=== PATIENT | female | born 1990 | race Caucasian/White ===

== ENCOUNTER 2020-04-18 16:06 | Inpatient (IN) | payer MEDICAID ==
[2020-04-18] MEDS ORDERED: Methylergonovine 0.2 MG/1 ML Amp IM PRN (16:41)
[2020-04-18] MEDS ORDERED: Misoprostol 200 MCG Tab PO PRN (16:41)
[2020-04-18] MEDS ORDERED: Water For Irrigation,Sterile 1,000 ML Container IRR PRN (16:41)
[2020-04-18] MEDS ORDERED: Sodium Chloride 0.9% 2.5 ML Syringe FLUSH PRN (16:41)
[2020-04-18] MEDS ORDERED: Tranexamic Acid 1,000 MG in Sodium Chloride 0.9% 100 ML IV PRN (16:41)
[2020-04-18] MEDS ORDERED: Carboprost Tromethamine 250 MCG/1 ML Amp IM PRN (16:41)
[2020-04-18] MEDS ORDERED: Sodium Chloride 0.9% 10 ML SDV IV PRN (16:41)
[2020-04-18] MEDS ORDERED: Nalbuphine 10 MG/1 ML Vial IVPUSH PRN (16:41)
[2020-04-18] MEDS ORDERED: Sodium Chloride 0.9% 10 ML Syringe FLUSH PRN (16:41)
[2020-04-18] MEDS ORDERED: Butorphanol 1 MG/ML SDV IVPUSH PRN (16:41)
[2020-04-18] MEDS ORDERED: Lidocaine 1% 50 ML MDV INJECT PRN (16:41)
[2020-04-18] MEDS ORDERED: Oxytocin/0.9 % Sodium Chloride 30 UNIT/500 ML BAG IV SCH (16:45)
--- NOTE | 2020-04-18 16:56 | PCM.LDHP ---
L&D History of Present Illness - General Date of Service: 04/18/20 Admit Problem/Dx: Patient Status Order with Admit Dx/Problem 04/18/20 16:41 Patient Status [ADT] Routine Admission Diagnosis/Problem Admission Diagnosis/Problem 04/18/20 16:56 presenting to L&D at 38 5/7 weeks (HELEN: 04/27/20) in active labor; doretha q3-4min; SVE per nurse 5cm/90%/0, soft, midposition; GBS negative, Rubella immune, O+; vertex presentation by Ry'scott, confirmed by bedside ultrasound Source of Information: Patient History Limitations: Reports: No Limitations - Related Data Allergies/Adverse Reactions: Allergies Allergy/AdvReac Type Severity Reaction Status Date / Time No Known Allergies Allergy Verified 04/18/20 16:38 Past Medical History HEENT History: Reports: None Cardiovascular History: Reports: None Respiratory History: Reports: None Gastrointestinal History: Reports: GERD Genitourinary History: Reports: None 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: Musculoskeletal History: Reports: None, Fracture Other Musculoskeletal History: Fracture right hip Neurological History: Reports: None Psychiatric History: Reports: None Endocrine/Metabolic History: Reports: None Hematologic History: Reports: None Immunologic History: Reports: None Oncologic (Cancer) History: Reports: None Dermatologic History: Reports: None - Infectious Disease History Infectious Disease History: Reports: None Social & Family History - Family History Cardiac: Reports: [place] Psychiatric: Reports: Autism Endocrine/Metabolic: Reports: Diabetes, type II H&P Review of Systems - Review of Systems: Review Of Systems: See Below General: Reports: No Symptoms HEENT: Reports: No Symptoms Pulmonary: Reports: No Symptoms Cardiovascular: Reports: No Symptoms Gastrointestinal: Reports: No Symptoms Genitourinary: Reports: No Symptoms Musculoskeletal: Reports: No Symptoms Skin: Reports: No Symptoms Psychiatric: Reports: No Symptoms Neurological: Reports: No Symptoms Hematologic/Lymphatic: Reports: No Symptoms Immunologic: Reports: No Symptoms L&D Exam - Exam Exam: See Below - Vital Signs Weight: 145 lb - OB Specific Contraction Intensity: Mild to Moderate Movement: Active Heart Tones: Present Heart Rate (FHR) Variability: Moderate (6-25 bmp) Presentation: Vertex - Lock Score Lock Score Cervix Position: Midposition Lock Score Consistency: Soft Lock Score Effacement: >80% Lock Score Dilation: > 5 cm Lock Score Infant's Station: -1 ,0 Lock Score Total: 11 - Exam General: Alert, Oriented, Cooperative Lungs: Normal Respiratory Effort Cardiovascular: Regular Rate, Regular Rhythm GI/Abdominal Exam: Soft, Non-Tender Rectal Exam: Deferred Genitourinary: Deferred Back Exam: Normal Inspection, Full Range of Motion Extremities: Normal Inspection, Normal Range of Motion, Non-Tender, Normal Capillary Refill Skin: Warm, Dry, Intact Neurological: Normal Gait, Normal Speech, Normal Tone, Sensation Intact Psychiatric: Alert, Normal Affect, Normal Mood - Problem List (1) Supervision of normal IUP (intrauterine ) in multigravida SNOMED Code(s): 481551299, 937413597, 439898636 ICD Code: Z34.90 - ENCNTR FOR SUPRVSN OF NORMAL , UNSP, UNSP TRIMESTER Status: Acute Priority: High Current Visit: No Qualifiers: Trimester: third trimester Problem List Initiated/Reviewed/Updated: Yes Orders Last 24hrs: Active Orders 24 hr Category Date Time Status Patient Status [ADT] Routine ADT 04/18/20 16:41 Active Heart Tones [RC] CONTINUOUS Care 04/18/20 16:41 Active Non Stress Test [RC] PER UNIT ROUTINE Care 04/18/20 16:41 Active May Shower [RC] ASDIRECTED Care 04/18/20 16:41 Active Notify Provider [RC] PRN Care 04/18/20 16:41 Active Up ad Ria [RC] ASDIRECTED Care 04/18/20 16:41 Active Vaginal Exam [RC] PRN Care 04/18/20 16:41 Active Vital Signs [RC] PER UNIT ROUTINE Care 04/18/20 16:41 Active CBC W/O DIFF,HEMOGRAM [HEME] Routine Lab 04/18/20 16:41 Ordered CORONAVIRUS COVID-19 PCR PHL Stat Lab 04/18/20 16:43 Ordered RPR (SYPHILIS SERO) W/ RFLX [REF] Routine Lab 04/18/20 16:41 Ordered TYPE AND SCREEN [BBK] Routine Lab 04/18/20 16:41 Ordered Butorphanol [Stadol] Med 04/18/20 16:41 Ordered 1 mg IVPUSH Q1H PRN Carboprost Tromethamine [Hemabate DS] Med 04/18/20 16:41 Ordered 250 mcg IM ASDIRECTED PRN Lactated Ringers [Ringers, Lactated] 1,000 ml Med 04/18/20 16:45 Ordered IV ASDIRECTED Lidocaine 1% [Xylocaine 1%] Med 04/18/20 16:41 Ordered 50 ml INJECT ONETIME PRN Methylergonovine [Methergine] Med 04/18/20 16:41 Ordered 0.2 mg IM ASDIRECTED PRN Nalbuphine [Nubain] Med 04/18/20 16:41 Ordered 10 mg IVPUSH Q1H PRN Oxytocin/0.9 % Sodium Chloride [Oxytocin 30 Unit/500 ML Med 04/18/20 16:45 Ordered -NS] 30 unit in 500 ml IV TITRATE Sodium Chloride 0.9% [Normal Saline] Med 04/18/20 16:41 Ordered 10 ml IV ASDIRECTED PRN Sodium Chloride 0.9% [Saline Flush] Med 04/18/20 16:41 Ordered 10 ml FLUSH ASDIRECTED PRN Sodium Chloride 0.9% [Saline Flush] Med 04/18/20 16:41 Ordered 2.5 ml FLUSH ASDIRECTED PRN Tranexamic Acid [Cyklokapron] 1,000 mg Med 04/18/20 16:41 Ordered Sodium Chloride 0.9% [Normal Saline] 100 ml IV ONETIME Water For Irrigation,Sterile [Sterile Water for Med 04/18/20 16:41 Ordered Irrigation] 1,000 ml IRR ASDIRECTED PRN miSOPROStoL [Cytotec] Med 04/18/20 16:41 Ordered 200 mcg PO ONETIME PRN Scalp Electrode [WOMSER] Per Unit Routine Oth 04/18/20 16:41 Ordered Peripheral IV Insertion Adult [OM.PC] Routine Oth 04/18/20 16:41 Ordered Resuscitation Status Routine Resus Stat 04/18/20 16:41 Ordered Medication Orders Butorphanol Tartrate (Stadol) 1 mg IVPUSH Q1H PRN PRN Reason: Pain Carboprost Tromethamine (Hemabate Ds) 250 mcg IM ASDIRECTED PRN PRN Reason: Post Hemorrhage Oxytocin/Sodium Chloride (Oxytocin 30 Unit/500 Ml-Ns) 30 unit in 500 mls @ 500 mls/hr IV TITRATE [facility] Tranexamic Acid 1,000 mg/ (Sodium Chloride) 110 mls @ 660 mls/hr IV ONETIME PRN PRN Reason: Bleeding Lactated Ringer's (Ringers, Lactated) 1,000 mls @ 150 mls/hr IV ASDIRECTED [facility] Lidocaine HCl (Xylocaine 1%) 50 ml INJECT ONETIME PRN PRN Reason: Laceration repair Methylergonovine Maleate (Methergine) 0.2 mg IM ASDIRECTED PRN PRN Reason: Post Hemorrhage Misoprostol (Cytotec) 200 mcg PO ONETIME PRN PRN Reason: Post Hemorrhage Nalbuphine HCl (Nubain) 10 mg IVPUSH Q1H PRN PRN Reason: Pain (severe 7-10) Sodium Chloride (Saline Flush) 10 ml FLUSH ASDIRECTED PRN PRN Reason: Keep Vein Open Sodium Chloride (Saline Flush) 2.5 ml FLUSH ASDIRECTED PRN PRN Reason: Keep Vein Open Sodium Chloride (Normal Saline) 10 ml IV ASDIRECTED PRN PRN Reason: IV Use Sterile Water (Sterile Water For Irrigation) 1,000 ml IRR ASDIRECTED PRN PRN Reason: delivery Assessment/Plan Comment:: Admit A: presenting to L&D at 38 5/7 weeks (HELEN: 04/27/20) in active labor; doretha q3-4min; SVE per nurse 5cm/90%/0, soft, midposition; GBS negative, Rubella immune, O+; vertex presentation by Ry's, confirmed by bedside ultrasound P: Anticipate ; epidural PRN; Dr. Marquez updated.
[2020-04-18] MEDS: Lactated Ringers 1,000 ML IV SCH ×2 (17:17→18:13)
[2020-04-18] MEDS ORDERED: Bupivicaine/fentaNYL/NS 250 ML ONE (18:35)
[2020-04-18] MEDS ORDERED: fentaNYL 100 MCG/2 ML SDV ONE (18:36)
[2020-04-18] MEDS ORDERED: Bupivacaine 0.5% 10 ML SDV ONE (18:37)
--- NOTE | 2020-04-18 20:13 | PCM.DEL ---
L & D Note - General Info Date of Service: 04/18/20 Mother's Due Date: 04/27/20 - Delivery Note Labor: Spontaneous Delivery Outcome: Livebirth Infant Delivery Method: Spontaneous Vaginal Delivery-Single Presentation: Vertex Nuchal Cord: None Anesthesia Type: Epidural Amniotic Fluid Description: Clear Laceration: None Placenta: Intact, Spontaneous Cord: 3 Vessels Estimated Blood Loss: 150 Resuscitation Needed: No Score 1 min: 9 Score 5 min: 9 Second Stage Interventions: Reports: Second Nurse Assessed Progress of Descent, Second Nurse Reviewed Contraction Pattern, Second Nurse Reviewed Heart Tones, Encouragement Given, Pushing Effectively, Pushing, Pulls Own Legs Back Delivery Comments (Free Text/Narrative):: viable male; epidural for pain relief; head delivered with good pushing; shoulders and body followed easily after; no nuchal; baby to mom's abdomen immediately [id number] for assessment; APGARs 9/9/; weight pending; cord doubly clamped, cut by tool design drafter after cessation of pulsing; placenta delivered grossly intact, nj; 3VC; EBL 150 mL; perineum intact; pitocin to IVF; mom and baby left in stable condition with nurse at bedside for assessment - General Info Date of Service: 04/18/20 Admission Dx/Problem (Free Text): Patient Status Order with Admit Dx/Problem 04/18/20 16:41 Patient Status [ADT] Routine Admission Diagnosis/Problem Admission Diagnosis/Problem 04/18/20 16:56 presenting to L&D at 38 5/7 weeks (HELEN: 04/27/20) in active labor; doretha q3-4min; SVE per nurse 5cm/90%/0, soft, midposition; GBS negative, Rubella immune, O+; vertex presentation by Ry's, confirmed by bedside ultrasound Functional Status: Reports: Pain Controlled - Review of Systems General: Reports: No Symptoms HEENT: Reports: No Symptoms Pulmonary: Reports: No Symptoms Cardiovascular: Reports: No Symptoms Gastrointestinal: Reports: No Symptoms Genitourinary: Reports: No Symptoms Musculoskeletal: Reports: No Symptoms Skin: Reports: No Symptoms Neurological: Reports: No Symptoms Psychiatric: Reports: No Symptoms - Patient Data Weight - Most Recent: 145 lb I&O - Last 24 Hours: Intake & Output 04/18/20 04/18/20 04/18/20 06:59 14:59 22:59 Intake Total 1000 Balance 1000 Lab Results Last 24 Hours: Laboratory Results - last 24 hr 04/18/20 04/18/20 04/18/20 Range/Units 17:28 17:28 17:30 WBC 17.00 H (4.0-11.0) K/uL RBC 3.91 L (4.30-5.90) M/uL Hgb 12.5 (12.0-16.0) g/dL Hct 37.1 (36.0-46.0) % MCV 94.9 (80.0-98.0) fL MCH 32.0 (27.0-32.0) pg MCHC 33.7 (31.0-37.0) g/dL RDW Std Deviation 44.6 (28.0-62.0) fl RDW Coeff of Marisa 13 (11.0-15.0) % Plt Count 213 (150-400) K/uL MPV 10.60 (7.40-12.00) fL Nucleated RBC % 0.0 /100WBC Nucleated RBCs # 0 K/uL SARS-CoV-2 RNA (BRIANNA) NEGATIVE (NEGATIVE) Blood Type O POSITIVE Antibody Screen NEGATIVE Med Orders - Current: Current Medications Butorphanol Tartrate (Stadol) 1 mg IVPUSH Q1H PRN PRN Reason: Pain Carboprost Tromethamine (Hemabate Ds) 250 mcg IM ASDIRECTED PRN PRN Reason: Post Hemorrhage Oxytocin/Sodium Chloride (Oxytocin 30 Unit/500 Ml-Ns) 30 unit in 500 mls @ 500 mls/hr IV TITRATE [facility] Tranexamic Acid 1,000 mg/ (Sodium Chloride) 110 mls @ 660 mls/hr IV ONETIME PRN PRN Reason: Bleeding Lactated Ringer's (Ringers, Lactated) 1,000 mls @ 150 mls/hr IV ASDIRECTED [facility] Last Admin: 04/18/20 18:13 Dose: 999 mls/hr Documented by: Lidocaine HCl (Xylocaine 1%) 50 ml INJECT ONETIME PRN PRN Reason: Laceration repair Methylergonovine Maleate (Methergine) 0.2 mg IM ASDIRECTED PRN PRN Reason: Post Hemorrhage Misoprostol (Cytotec) 200 mcg PO ONETIME PRN PRN Reason: Post Hemorrhage Sodium Chloride (Saline Flush) 10 ml FLUSH ASDIRECTED PRN PRN Reason: Keep Vein Open Sodium Chloride (Saline Flush) 2.5 ml FLUSH ASDIRECTED PRN PRN Reason: Keep Vein Open Sodium Chloride (Normal Saline) 10 ml IV ASDIRECTED PRN PRN Reason: IV Use Sterile Water (Sterile Water For Irrigation) 1,000 ml IRR ASDIRECTED PRN PRN Reason: delivery Discontinued Medications Bupivacaine HCl (Sensorcaine-Mpf 0.5%) Confirm Administered Dose 10 ml .ROUTE .STK-MED ONE Stop: 04/18/20 18:38 Fentanyl (Sublimaze) Confirm Administered Dose 100 mcg .ROUTE .STK-MED ONE Stop: 04/18/20 18:37 Fentanyl/Bupivacaine HCl (Fentanyl/Bupivacaine/Ns 2 Mcg-0.125% 250 Ml) Confirm Administered Dose 250 mls @ as directed .ROUTE .STK-MED ONE Stop: 04/18/20 18:36 - Exam General: Alert, Oriented, Cooperative, No Acute Distress Lungs: Normal Respiratory Effort Cardiovascular: Regular Rate, Regular Rhythm GI/Abdominal Exam: Soft, Non-Tender (Female) Exam: Deferred Back Exam: Normal Inspection Extremities: Normal Inspection, Normal Range of Motion, No Pedal Edema, Normal Capillary Refill Skin: Warm, Dry, Intact Neurological: No New Focal Deficit, Normal Speech, Normal Tone Psy/Mental Status: Alert, Normal Affect, Normal Mood - Problem List & Annotations (1) Supervision of normal IUP (intrauterine ) in multigravida SNOMED Code(s): 671717090, [id number], 166041213 Code(s): Z34.90 - ENCNTR FOR SUPRVSN OF NORMAL , UNSP, UNSP TRIMESTER Status: Acute Priority: High Current Visit: No Qualifiers: Trimester: third trimester (2) (spontaneous vaginal delivery) SNOMED Code(s): 899362362 Code(s): O80 - ENCOUNTER FOR FULL-TERM UNCOMPLICATED DELIVERY Status: Acute Priority: High Current Visit: No - Problem List Review Problem List Initiated/Reviewed/Updated: Yes - My Orders Last 24 Hours: My Active Orders 04/18/20 16:41 Patient Status [ADT] Routine Heart Tones [RC] CONTINUOUS Non Stress Test [RC] PER UNIT ROUTINE May Shower [RC] ASDIRECTED Notify Provider [RC] PRN Up ad Ria [RC] ASDIRECTED Vaginal Exam [RC] PRN Vital Signs [RC] PER UNIT ROUTINE Butorphanol [Stadol] 1 mg IVPUSH Q1H PRN Carboprost Tromethamine [Hemabate DS] 250 mcg IM ASDIRECTED PRN Lidocaine 1% [Xylocaine 1%] 50 ml INJECT ONETIME PRN Methylergonovine [Methergine] 0.2 mg IM ASDIRECTED PRN Sodium Chloride 0.9% [Normal Saline] 10 ml IV ASDIRECTED PRN Sodium Chloride 0.9% [Saline Flush] 10 ml FLUSH ASDIRECTED PRN Sodium Chloride 0.9% [Saline Flush] 2.5 ml FLUSH ASDIRECTED PRN Tranexamic Acid [Cyklokapron] 1,000 mg Sodium Chloride 0.9% [Normal Saline] 100 ml IV ONETIME Water For Irrigation,Sterile [Sterile Water for Irrigation] 1,000 ml IRR ASDIRECTED PRN miSOPROStoL [Cytotec] 200 mcg PO ONETIME PRN Scalp Electrode [WOMSER] Per Unit Routine Peripheral IV Insertion Adult [OM.PC] Routine Resuscitation Status Routine 04/18/20 16:45 Lactated Ringers [Ringers, Lactated] 1,000 ml IV ASDIRECTED Oxytocin/0.9 % Sodium Chloride [Oxytocin 30 Unit/500 ML-NS] 30 unit in 500 ml IV TITRATE 04/18/20 17:28 RPR (SYPHILIS SERO) W/ RFLX [REF] Routine - Plan Plan:: Admit A: presenting to L&D at 38 5/7 weeks (HELEN: 04/27/20) in active labor; doretha q3-4min; SVE per nurse 5cm/90%/0, soft, midposition; GBS negative, Rubella immune, O+; vertex presentation by Ry's, confirmed by bedside ultrasound P: Anticipate ; epidural PRN; Dr. Marquez updated. Delivery A: viable male; epidural for pain relief; APGARs 9/9; weight pending; cord doubly clamped, cut by tool design drafter after cessation of pulsing; placenta delivered grossly intact, nj; 3VC; EBL 150 mL; perineum intact; pitocin to IVF; mom and baby left in stable condition with nurse at bedside for assessment P: Routine plan of care; Dr. Marquez updated.
[2020-04-18] MEDS ORDERED: Bisacodyl 10 MG Supp RECTAL PRN (20:16)
[2020-04-18] MEDS ORDERED: Benzocaine/Menthol 20%-0.5% Spray 78 GM Cannister TOP PRN (20:16)
[2020-04-18] MEDS ORDERED: Ibuprofen 400 MG Tab PO PRN (20:16)
[2020-04-18] MEDS ORDERED: oxyCODONE 5 MG Tab PO PRN (20:16)
[2020-04-18] MEDS ORDERED: Acetaminophen 500 MG Tab PO PRN ×2 (20:16)
[2020-04-18] MEDS ORDERED: Docusate Sodium 100 MG Cap PO PRN (20:16)
[2020-04-18] MEDS ORDERED: Witch Hazel Medicated Pads 40/Jar TOP PRN (20:16)
[2020-04-18] MEDS ORDERED: Lanolin 100% Cream 7 GM Tube TOP PRN (20:16)
[2020-04-18] MEDS ORDERED: Ibuprofen 800 MG Tab PO PRN (20:16)
--- NOTE | 2020-04-19 07:21 | PCM48HPAN ---
Post Anesthesia Note - EVALUATION WITHIN 48HRS OF ANESTHETIC Vital Signs in Normal Range: Yes Patient Participated in Evaluation: Yes Respiratory Function Stable: Yes Airway Patent: Yes Cardiovascular Function Stable: Yes Hydration Status Stable: Yes Pain Control Satisfactory: Yes Nausea and Vomiting Control Satisfactory: Yes Mental Status Recovered: Yes Vital Signs: Last Vital Signs Temp 36.5 C 04/19/20 05:30 Pulse 81 04/19/20 05:30 Resp 15 04/19/20 05:30 BP 109/78 04/19/20 05:30 Pulse Ox 96 04/19/20 05:30 - COMMENTS/OBSERVATIONS Free Text/Narrative:: Doing well. No problems post.
--- NOTE | 2020-04-19 07:34 | PCM.PREANE ---
Preanesthetic Assessment - Anesthesia/Transfusion/Family Hx Anesthesia History: Prior Anesthesia Without Reaction Family History of Anesthesia Reaction: No Transfusion History: No Prior Transfusion(s) - Review of Systems General: No Symptoms Pulmonary: No Symptoms Cardiovascular: No Symptoms Gastrointestinal: Abdominal Pain Neurological: No Symptoms Other: Reports: None - Physical Assessment NPO Status Date: 04/18/20 Vital Signs: Last Vital Signs Temp 97.7 F 04/19/20 05:30 Pulse 81 04/19/20 05:30 Resp 15 04/19/20 05:30 BP 109/78 04/19/20 05:30 Pulse Ox 96 04/19/20 05:30 Height: 5 ft 2 in Weight: 65.771 kg ASA Class: 2 Mental Status: Alert & Oriented x3 Airway Class: Mallampati = 2 Dentition: Reports: Normal Dentition ROM/Head Extension: Full Lungs: Clear to Auscultation, Normal Respiratory Effort Cardiovascular: Regular Rate, Regular Rhythm - Lab Values: Laboratory Last Values WBC 17.00 K/uL (4.0-11.0) H 04/18/20 17:28 RBC 3.91 M/uL (4.30-5.90) L 04/18/20 17:28 Hgb 11.7 g/dL (12.0-16.0) L 04/19/20 05:39 Hct 35.7 % (36.0-46.0) L 04/19/20 05:39 MCV 94.9 fL (80.0-98.0) 04/18/20 17:28 MCH 32.0 pg (27.0-32.0) 04/18/20 17:28 MCHC 33.7 g/dL (31.0-37.0) 04/18/20 17:28 RDW Std Deviation 44.6 fl (28.0-62.0) 04/18/20 17:28 RDW Coeff of Marisa 13 % (11.0-15.0) 04/18/20 17:28 Plt Count 213 K/uL (150-400) 04/18/20 17:28 MPV 10.60 fL (7.40-12.00) 04/18/20 17:28 Nucleated RBC % 0.0 /100WBC 04/18/20 17:28 Nucleated RBCs # 0 K/uL 04/18/20 17:28 SARS-CoV-2 RNA (BRIANNA) NEGATIVE (NEGATIVE) 04/18/20 17:30 Blood Type O POSITIVE 04/18/20 17:28 Antibody Screen NEGATIVE 04/18/20 17:28 - Allergies Allergies/Adverse Reactions: Allergies Allergy/AdvReac Type Severity Reaction Status Date / Time No Known Allergies Allergy Verified 04/18/20 16:38 - Acknowledgements Anesthesia Type Planned: Epidural Pt an Appropriate Candidate for the Planned Anesthesia: Yes Alternatives and Risks of Anesthesia Discussed w Pt/Guardian: Yes Pt/Guardian Understands and Agrees with Anesthesia Plan: Yes PreAnesthesia Questionnaire - Past Health History Medical/Surgical History: Denies Medical/Surgical History HEENT History: Reports: None Cardiovascular History: Reports: None Respiratory History: Reports: None Gastrointestinal History: Reports: GERD Genitourinary History: Reports: None 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: Musculoskeletal History: Reports: None, Fracture Other Musculoskeletal History: Fracture right hip Neurological History: Reports: None Psychiatric History: Reports: None Endocrine/Metabolic History: Reports: None Hematologic History: Reports: None Immunologic History: Reports: None Oncologic (Cancer) History: Reports: None Dermatologic History: Reports: None - Infectious Disease History Infectious Disease History: Reports: None - SUBSTANCE USE Tobacco Use Status *Q: Never Tobacco User Second Hand Smoke Exposure: No - CURRENT (IN HOUSE) MEDS Current Meds: Current Medications Acetaminophen (Tylenol Extra Strength) 500 mg PO Q4H PRN PRN Reason: Pain Acetaminophen (Tylenol Extra Strength) 1,000 mg PO Q4H PRN PRN Reason: Pain Benzocaine/Menthol (Dermoplast Pain Relief 20%-0.5% [place]) 78 gm TOP ASDIRECTED PRN PRN Reason: Perineal Comfort Measure Bisacodyl (Dulcolax) 10 mg RECTAL ONETIME PRN PRN Reason: Constipation Docusate Sodium (Colace) 100 mg PO BID PRN PRN Reason: Constipation Emollient Ointment (Lansinoh Hpa) 0 gm TOP ASDIRECTED PRN PRN Reason: Sore Nipples Ibuprofen (Motrin) 400 mg PO Q4H PRN PRN Reason: Pain Ibuprofen (Motrin) 800 mg PO Q6H PRN PRN Reason: Pain Oxycodone HCl (Oxycodone) 5 mg PO Q2H PRN PRN Reason: Pain Witch Yuliana (Tucks) 1 pad TOP ASDIRECTED PRN PRN Reason: comfort care Discontinued Medications Bupivacaine HCl (Sensorcaine-Mpf 0.5%) Confirm Administered Dose 10 ml .ROUTE .uiu-MED ONE Stop: 04/18/20 18:38 Butorphanol Tartrate (Stadol) 1 mg IVPUSH Q1H PRN PRN Reason: Pain Carboprost Tromethamine (Hemabate Ds) 250 mcg IM ASDIRECTED PRN PRN Reason: Post Hemorrhage Fentanyl (Sublimaze) Confirm Administered Dose 100 mcg .ROUTE .uiu-MED ONE Stop: 04/18/20 18:37 Oxytocin/Sodium Chloride (Oxytocin 30 Unit/500 Ml-Ns) 30 unit in 500 mls @ 500 mls/hr IV TITRATE [facility] Tranexamic Acid 1,000 mg/ (Sodium Chloride) 110 mls @ 660 mls/hr IV ONETIME PRN PRN Reason: Bleeding Lactated Ringer's (Ringers, Lactated) 1,000 mls @ 150 mls/hr IV ASDIRECTED [facility] Last Admin: 04/18/20 18:13 Dose: 999 mls/hr Documented by: Fentanyl/Bupivacaine HCl (Fentanyl/Bupivacaine/Ns 2 Mcg-0.125% 250 Ml) Confirm Administered Dose 250 mls @ as directed .ROUTE .WindPipe ONE Stop: 04/18/20 18:36 Lidocaine HCl (Xylocaine 1%) 50 ml INJECT ONETIME PRN PRN Reason: Laceration repair Methylergonovine Maleate (Methergine) 0.2 mg IM ASDIRECTED PRN PRN Reason: Post Hemorrhage Misoprostol (Cytotec) 200 mcg PO ONETIME PRN PRN Reason: Post Hemorrhage Sodium Chloride (Saline Flush) 10 ml FLUSH ASDIRECTED PRN PRN Reason: Keep Vein Open Sodium Chloride (Saline Flush) 2.5 ml FLUSH ASDIRECTED PRN PRN Reason: Keep Vein Open Sodium Chloride (Normal Saline) 10 ml IV ASDIRECTED PRN PRN Reason: IV Use Sterile Water (Sterile Water For Irrigation) 1,000 ml IRR ASDIRECTED PRN PRN Reason: delivery
--- NOTE | 2020-04-19 07:42 | PCM.DCSUM1 ---
Discharge Summary - Hospital Course Free Text/Narrative:: Discharge home with baby. Follow up in the clinic in six weeks for routine visit; sooner, if needed. Diagnosis: Stroke: No Modified [place] Scale: No Symptoms at All Modified Jan[place] Scale Score: 0 - Discharge Data Discharge Date: 04/19/20 Discharge Disposition: Home, Self-Care 01 Condition: Good - Referral to Home Health Primary Care Physician: PCP None - Discharge Diagnosis/Problem(s) (1) Supervision of normal IUP (intrauterine ) in multigravida SNOMED Code(s): 437898056, 211480525, 853240444 ICD Code: Z34.90 - ENCNTR FOR SUPRVSN OF NORMAL , UNSP, UNSP TRIMESTER Status: Acute Priority: High Current Visit: No Qualifiers: Trimester: third trimester (2) (spontaneous vaginal delivery) SNOMED Code(s): 903398105 ICD Code: O80 - ENCOUNTER FOR FULL-TERM UNCOMPLICATED DELIVERY Status: Acute Priority: High Current Visit: No - Patient Instructions Diet: Usual Diet as Tolerated, Regular Diet as Tolerated, Drink 8-10+ Glasses/Day Activity: As Tolerated, No Strenuous Activities, Rest and Relax Today Driving: May Drive Today Showering/Bathing: May Shower Notify Provider of: Fever, Increased Pain, Swelling and Redness, Drainage, Naus ea and/or Vomiting - Discharge Plan *PRESCRIPTION DRUG MONITORING PROGRAM REVIEWED*: Not Applicable *COPY OF PRESCRIPTION DRUG MONITORING REPORT IN PATIENT KASIE: Not Applicable Prescriptions/Med Rec: Ibuprofen [Motrin] 800 mg PO Q6H PRN #90 tablet PRN Reason: Pain Home Medications: Home Meds Ibuprofen [Motrin] 800 mg PO Q6H PRN #90 tablet 04/19/20 [Rx] Oxygen Therapy Mode: Room Air - Discharge Summary/Plan Comment DC Time >30 min.: Yes - General Info Date of Service: 04/19/20 Admission Dx/Problem (Free Text: Patient Status Order with Admit Dx/Problem 04/18/20 16:41 Patient Status [ADT] Routine Admission Diagnosis/Problem Admission Diagnosis/Problem 04/18/20 16:56 presenting to L&D at 38 5/7 weeks (HELEN: 04/27/20) in active labor; doretha q3-4min; SVE per nurse 5cm/90%/0, soft, midposition; GBS negative, Rubella immune, O+; vertex presentation by Yury, confirmed by bedside ultrasound Functional Status: Reports: Pain Controlled, Tolerating Diet, Ambulating, Urinating - Review of Systems General: Reports: No Symptoms HEENT: Reports: No Symptoms Pulmonary: Reports: No Symptoms Cardiovascular: Reports: No Symptoms Gastrointestinal: Reports: No Symptoms Genitourinary: Reports: No Symptoms Musculoskeletal: Reports: No Symptoms Skin: Reports: No Symptoms Neurological: Reports: No Symptoms Psychiatric: Reports: No Symptoms - Patient Data Vitals - Most Recent: Last Vital Signs Temp 97.7 F 04/19/20 05:30 Pulse 81 04/19/20 05:30 Resp 15 04/19/20 05:30 BP 109/78 04/19/20 05:30 Pulse Ox 96 04/19/20 05:30 Weight - Most Recent: 145 lb I&O - Last 24 hours: Intake & Output 04/18/20 04/19/20 04/19/20 22:59 06:59 14:59 Intake Total 1000 Balance 1000 Lab Results - Last 24 hrs: Laboratory Results - last 24 hr 04/18/20 04/18/20 04/18/20 Range/Units 17:28 17:28 17:30 WBC 17.00 H (4.0-11.0) K/uL RBC 3.91 L (4.30-5.90) M/uL Hgb 12.5 (12.0-16.0) g/dL Hct 37.1 (36.0-46.0) % MCV 94.9 (80.0-98.0) fL MCH 32.0 (27.0-32.0) pg MCHC 33.7 (31.0-37.0) g/dL RDW Std Deviation 44.6 (28.0-62.0) fl RDW Coeff of Marisa 13 (11.0-15.0) % Plt Count 213 (150-400) K/uL MPV 10.60 (7.40-12.00) fL Nucleated RBC % 0.0 /100WBC Nucleated RBCs # 0 K/uL SARS-CoV-2 RNA (BRIANNA) NEGATIVE (NEGATIVE) Blood Type O POSITIVE Antibody Screen NEGATIVE 04/19/20 Range/Units 05:39 WBC (4.0-11.0) K/uL RBC (4.30-5.90) M/uL Hgb 11.7 L (12.0-16.0) g/dL Hct 35.7 L (36.0-46.0) % MCV (80.0-98.0) fL MCH (27.0-32.0) pg MCHC (31.0-37.0) g/dL RDW Std Deviation (28.0-62.0) fl RDW Coeff of Marisa (11.0-15.0) % Plt Count (150-400) K/uL MPV (7.40-12.00) fL Nucleated RBC % /100WBC Nucleated RBCs # K/uL SARS-CoV-2 RNA (BRIANNA) (NEGATIVE) Blood Type Antibody Screen Med Orders - Current: Current Medications Acetaminophen (Tylenol Extra Strength) 500 mg PO Q4H PRN PRN Reason: Pain Acetaminophen (Tylenol Extra Strength) 1,000 mg PO Q4H PRN PRN Reason: Pain Benzocaine/Menthol (Dermoplast Pain Relief 20%-0.5% [place]) 78 gm TOP ASDIRECTED PRN PRN Reason: Perineal Comfort Measure Bisacodyl (Dulcolax) 10 mg RECTAL ONETIME PRN PRN Reason: Constipation Docusate Sodium (Colace) 100 mg PO BID PRN PRN Reason: Constipation Emollient Ointment (Lansinoh Hpa) 0 gm TOP ASDIRECTED PRN PRN Reason: Sore Nipples Ibuprofen (Motrin) 400 mg PO Q4H PRN PRN Reason: Pain Ibuprofen (Motrin) 800 mg PO Q6H PRN PRN Reason: Pain Last Admin: 04/19/20 07:31 Dose: 800 mg Documented by: Oxycodone HCl (Oxycodone) 5 mg PO Q2H PRN PRN Reason: Pain Witch Yuliana (Tucks) 1 pad TOP ASDIRECTED PRN PRN Reason: comfort care Discontinued Medications Bupivacaine HCl (Sensorcaine-Mpf 0.5%) Confirm Administered Dose 10 ml .ROUTE .STK-MED ONE Stop: 04/18/20 18:38 Last Admin: 04/19/20 07:37 Dose: Not Given Documented by: Butorphanol Tartrate (Stadol) 1 mg IVPUSH Q1H PRN PRN Reason: Pain Carboprost Tromethamine (Hemabate Ds) 250 mcg IM ASDIRECTED PRN PRN Reason: Post Hemorrhage Fentanyl (Sublimaze) Confirm Administered Dose 100 mcg .ROUTE .STK-MED ONE Stop: 04/18/20 18:37 Last Admin: 04/19/20 07:37 Dose: Not Given Documented by: Oxytocin/Sodium Chloride (Oxytocin 30 Unit/500 Ml-Ns) 30 unit in 500 mls @ 500 mls/hr IV TITRATE [facility] Tranexamic Acid 1,000 mg/ (Sodium Chloride) 110 mls @ 660 mls/hr IV ONETIME PRN PRN Reason: Bleeding Lactated Ringer's (Ringers, Lactated) 1,000 mls @ 150 mls/hr IV ASDIRECTED [facility] Last Admin: 04/18/20 18:13 Dose: 999 mls/hr Documented by: Fentanyl/Bupivacaine HCl (Fentanyl/Bupivacaine/Ns 2 Mcg-0.125% 250 Ml) Confirm Administered Dose 250 mls @ as directed .ROUTE .[employer] [employer] ONE Stop: 04/18/20 18:36 Lidocaine HCl (Xylocaine 1%) 50 ml INJECT ONETIME PRN PRN Reason: Laceration repair Methylergonovine Maleate (Methergine) 0.2 mg IM ASDIRECTED PRN PRN Reason: Post Hemorrhage Misoprostol (Cytotec) 200 mcg PO ONETIME PRN PRN Reason: Post Hemorrhage Sodium Chloride (Saline Flush) 10 ml FLUSH ASDIRECTED PRN PRN Reason: Keep Vein Open Sodium Chloride (Saline Flush) 2.5 ml FLUSH ASDIRECTED PRN PRN Reason: Keep Vein Open Sodium Chloride (Normal Saline) 10 ml IV ASDIRECTED PRN PRN Reason: IV Use Sterile Water (Sterile Water For Irrigation) 1,000 ml IRR ASDIRECTED PRN PRN Reason: delivery - Exam General: Reports: Alert, Oriented, Cooperative, No Acute Distress Lungs: Reports: Normal Respiratory Effort Cardiovascular: Reports: Regular Rate, Regular Rhythm GI/Abdominal Exam: Soft, Non-Tender (Female) Exam: Deferred Rectal (Female) Exam: Deferred Back Exam: Reports: Full Range of Motion Extremities: Normal Inspection, Normal Range of Motion, Non-Tender, Normal Capillary Refill Skin: Reports: Warm, Dry, Intact Neurological: Reports: No New Focal Deficit, Normal Speech, Normal Tone, Strength Equal Bilateral, Sensation Intact Psy/Mental Status: Reports: Alert, Normal Affect, Normal Mood
[2020-04-19 19:37] VITALS: BP 121/78; PULSE 80
== END 2020-04-19 21:30 | disposition home or self-care (01) | DRG 807 ==
LOC: MW.OBCHECK 16:06 → MW.OB 16:07 → MW.OBCHECK 16:41 → MW.OB 16:41 → OBSVTOIN 19:47 → MW.OB 23:00
PROVIDERS: ADMIT Obstetrics & Gynecology; ATTEND Obstetrics & Gynecology
PROC: 10E0XZZ Delivery of Products of Conception, External Approach (ICD-10-PCS; principal; 2020-04-18)
PROC: 3E0R3BZ Introduction of Anesthetic Agent into Spinal Canal, Percutaneous Approach (ICD-10-PCS; 2020-04-18)
DX: O80 Encounter for full-term uncomplicated delivery (principal); Z37.0 Single live birth; Z3A.38 38 weeks gestation of pregnancy; Z20.828 Contact with and (suspected) exposure to other viral communicable diseases
CPT/HCPCS: 36415; 59025; 59409; 85014; 85018; 85027; 86592; 86850; 86900; 86901; A9270-GY; J7120; U0002

== ENCOUNTER 2020-12-29 23:45 | Emergency (ER) | payer MEDICAID | END 2020-12-30 01:05 | disposition left against medical advice (07) | LOC: MW.ED 23:45 | DX: R10.9 Unspecified abdominal pain (principal); Z53.21 Procedure and treatment not carried out due to patient leaving prior to being seen by health care provider ==

== ENCOUNTER 2020-12-30 06:47 | Emergency (ER) | payer MEDICAID ==
[2020-12-30] MEDS ORDERED: Ondansetron 4 MG/2 ML SDV IVPUSH ONE (08:52)
[2020-12-30] MEDS ORDERED: Ketorolac 15 MG/ML SDV IVPUSH ONE (08:53)
[2020-12-30 09:45] LABS: CHLORIDE,CL 105 mmol/L (98-107); POTASSIUM,K 3.8 mmol/L (3.5-5.1); SODIUM,NA 141 mmol/L (136-145)
[2020-12-30 09:46] LABS: BLOOD UREA NITROGEN,BUN 10 mg/dL (7.0-18.0); CARBON DIOXIDE,CO2 27.3 mmol/L (21.0-32.0); GLUCOSE RANDOM 90 mg/dL (74-106); LIPASE 151 U/L (73-393)
--- NOTE | 2020-12-30 10:13 | EDM.PDOC ---
ED HPI GENERAL MEDICAL PROBLEM - General Chief Complaint: Abdominal Pain Stated Complaint: ABDOMINAL PAIN Time Seen by Provider: 12/30/20 06:52 - History of Present Illness INITIAL COMMENTS - FREE TEXT/NARRATIVE: History of present illness: Patient has abdominal pain for 2 months. She saw her doctor about 3 days ago. She has had worse pain for 2 days. It so bad she cannot sleep. The patient has dyspareunia for a month. She has nausea without vomiting. She has had 3 normal stools a day for the last few days although she usually has 1 stool a day. She is concerned that she was exposed to toxic well water 4 months ago one time and not since. She has no diarrhea. [] Review of systems: As per history of present illness and below otherwise all systems reviewed and negative. Past medical history: As per history of present illness and as reviewed below otherwise noncontributory. Surgical history: As per history of present illness and as reviewed below otherwise noncontributory. Social history: No reported history of drug or alcohol abuse. Family history: As per history of present illness and as reviewed below otherwise noncontributory. Physical exam: Constitutional - well developed, well-nourished and in no acute distress HEENT - normocephalic, no evidence of trauma - external nose and mouth normal - no mass in neck and no JVD - mucosae moist EYES - full EOM, PERRL, no icterus - no evidence of inflammation, injection, or drainage Respiratory - no respiratory distress, equal bilateral expansion, lungs clear to auscultation and no abnormal lung sounds Cardiovascular - Regular Rhythm with S1 and S2 appreciated and no murmur, gallop or rub. GI - abdomen soft without distension or organomegaly - normal bowel sounds - no guard or rebound Musculoskeletal no gross deformity of long bones or joints - no tenderness, swelling or edema Neurologic - Alert and oriented times four - CN II-XII grossly intact - motor sensory and coordination symmetrically normal Psychiatric - appropriate mood and affect with normal thought content Hematologic - No petechiae or purpura - mucosa appropriate color and sclera not pale - normal nail bed color and refill Integument - no rash or evidence of trauma - normal turgor Diagnostics: [] Therapeutics: [] Impression: [] Plan: [] Definitive disposition and diagnosis as appropriate pending reevaluation and review of above. abdominal Pain Score (Numeric/FACES): 6 - Related Data Allergies Allergy/AdvReac Type Severity Reaction Status Date / Time No Known Allergies Allergy Verified 12/30/20 10:13 Home Meds: Home Meds Acetaminophen/oxyCODONE [Percocet 325-5 MG] 1 each PO Q4HR PRN #12 tab 12/30/20 [Rx] Ondansetron [Zofran ODT] 4 mg PO Q6H PRN #8 tab.dis 12/30/20 [Rx] Past Medical History - Past Health History Medical/Surgical History: Denies Medical/Surgical History HEENT History: Reports: None Cardiovascular History: Reports: None Respiratory History: Reports: None Gastrointestinal History: Reports: GERD Genitourinary History: Reports: None [employer] INSPECTOR History: Reports: Musculoskeletal History: Reports: None, Fracture Other Musculoskeletal History: Fracture right hip Neurological History: Reports: None Psychiatric History: Reports: None Endocrine/Metabolic History: Reports: None Hematologic History: Reports: None Immunologic History: Reports: None Oncologic (Cancer) History: Reports: None Dermatologic History: Reports: None - Infectious Disease History Infectious Disease History: Reports: None Social & Family History - Family History Family Medical History: No Pertinent Family History Cardiac: Reports: [place] Psychiatric: Reports: Autism Endocrine/Metabolic: Reports: Diabetes, type II ED ROS GENERAL - Review of Systems Review Of Systems: Comprehensive ROS is negative, except as noted in HPI. ED EXAM, GENERAL - Physical Exam Exam: See Below Free Text/Narrative:: My physical exam is in the HPI Course - Vital Signs Last Recorded V/S: Last Vital Signs Temp 36.6 C 12/30/20 07:47 Pulse 99 12/30/20 07:47 Resp 16 12/30/20 07:47 BP 124/88 12/30/20 07:47 Pulse Ox 99 12/30/20 07:47 - Orders/Labs/Meds Orders: Active Orders 24 hr Category Date Time Status CHLAMYDIA AND GONORRHEA BY TMA Stat Lab 12/30/20 10:17 Ordered Ketorolac [Toradol] Med 12/30/20 08:53 Once 15 mg IVPUSH ONETIME ONE Ondansetron [Zofran] Med 12/30/20 08:52 Once 4 mg IVPUSH ONETIME ONE Labs: Laboratory Tests 07/16/21 07/16/21 07/16/21 Range/Units 08:10 08:10 09:30 WBC 8.26 (4.0-11.0) K/uL RBC 4.36 (4.30-5.90) M/uL Hgb 13.7 (12.0-16.0) g/dL Hct 40.0 (36.0-46.0) % MCV 91.7 (80.0-98.0) fL MCH 31.4 (27.0-32.0) pg MCHC 34.3 (31.0-37.0) g/dL RDW Std Deviation 43.6 (28.0-62.0) fl RDW Coeff of Marisa 13 (11.0-15.0) % Plt Count 237 (150-400) K/uL MPV 10.00 (7.40-12.00) fL Neut % (Auto) 70.3 (48.0-80.0) % Lymph % (Auto) 21.5 (16.0-40.0) % [place] % (Auto) 6.9 (0.0-15.0) % Eos % (Auto) 1.2 (0.0-7.0) % Baso % (Auto) 0.1 (0.0-1.5) % Neut # (Auto) 5.8 H (1.4-5.7) K/uL Lymph # (Auto) 1.8 (0.6-2.4) K/uL [place] # (Auto) 0.6 (0.0-0.8) K/uL Eos # (Auto) 0.1 (0.0-0.7) K/uL Baso # (Auto) 0.0 (0.0-0.1) K/uL Nucleated RBC % 0.0 /100WBC Nucleated RBCs # 0 K/uL Sodium 141 (136-145) mmol/L Potassium 3.8 (3.5-5.1) mmol/L Chloride 105 (98-107) mmol/L Carbon Dioxide 27.3 (21.0-32.0) mmol/L BUN 10 (7.0-18.0) mg/dL Creatinine 0.8 (0.6-1.0) mg/dL Est Cr Clr Drug Dosing TNP Estimated GFR (MDRD) > 60.0 ml/min Glucose 90 (74-106) mg/dL Calcium 8.8 (8.5-10.1) mg/dL Total Bilirubin 0.3 (0.2-1.0) mg/dL AST 25 (15-37) IU/L ALT 29 (14-63) IU/L Alkaline Phosphatase 62 (46-116) U/L Total Protein 7.4 (6.4-8.2) g/dL Albumin 4.1 (3.4-5.0) g/dL Globulin 3.3 (2.6-4.0) g/dL Albumin/Globulin Ratio 1.2 (0.9-1.6) Lipase 151 (73-393) U/L Urine Color YELLOW Urine Appearance CLEAR Urine pH 6.0 (5.0-8.0) Ur Specific [place] 1.015 (1.001-1.035) Urine Protein NEGATIVE (NEGATIVE) mg/dL Urine Glucose (UA) NEGATIVE (NEGATIVE) mg/dL Urine Ketones NEGATIVE (NEGATIVE) mg/dL Urine Occult Blood NEGATIVE (NEGATIVE) Urine Nitrite NEGATIVE (NEGATIVE) Urine Bilirubin NEGATIVE (NEGATIVE) Urine Urobilinogen 0.2 (<2.0) EU/dL Ur Leukocyte Esterase NEGATIVE (NEGATIVE) Urine RBC 0-2 (0-2/HPF) Urine WBC 0-2 (0-5/HPF) Ur Epithelial Cells FEW (NONE-FEW) Urine Bacteria FEW (NEGATIVE) Urine HCG, Qual (NEGATIVE) 12/30/20 Range/Units 09:30 WBC (4.0-11.0) K/uL RBC (4.30-5.90) M/uL Hgb (12.0-16.0) g/dL Hct (36.0-46.0) % MCV (80.0-98.0) fL MCH (27.0-32.0) pg MCHC (31.0-37.0) g/dL RDW Std Deviation (28.0-62.0) fl RDW Coeff of Marisa (11.0-15.0) % Plt Count (150-400) K/uL MPV (7.40-12.00) fL Neut % (Auto) (48.0-80.0) % Lymph % (Auto) (16.0-40.0) % [place] % (Auto) (0.0-15.0) % Eos % (Auto) (0.0-7.0) % Baso % (Auto) (0.0-1.5) % Neut # (Auto) (1.4-5.7) K/uL Lymph # (Auto) (0.6-2.4) K/uL [place] # (Auto) (0.0-0.8) K/uL Eos # (Auto) (0.0-0.7) K/uL Baso # (Auto) (0.0-0.1) K/uL Nucleated RBC % /100WBC Nucleated RBCs # K/uL Sodium (136-145) mmol/L Potassium (3.5-5.1) mmol/L Chloride (98-107) mmol/L Carbon Dioxide (21.0-32.0) mmol/L BUN (7.0-18.0) mg/dL Creatinine (0.6-1.0) mg/dL Est Cr Clr Drug Dosing Estimated GFR (MDRD) ml/min Glucose (74-106) mg/dL Calcium (8.5-10.1) mg/dL Total Bilirubin (0.2-1.0) mg/dL AST (15-37) IU/L ALT (14-63) IU/L Alkaline Phosphatase (46-116) U/L Total Protein (6.4-8.2) g/dL Albumin (3.4-5.0) g/dL Globulin (2.6-4.0) g/dL Albumin/Globulin Ratio (0.9-1.6) Lipase (73-393) U/L Urine Color Urine Appearance Urine pH (5.0-8.0) Ur Specific [place] (1.001-1.035) Urine Protein (NEGATIVE) mg/dL Urine Glucose (UA) (NEGATIVE) mg/dL Urine Ketones (NEGATIVE) mg/dL Urine Occult Blood (NEGATIVE) Urine Nitrite (NEGATIVE) Urine Bilirubin (NEGATIVE) Urine Urobilinogen (<2.0) EU/dL Ur Leukocyte Esterase (NEGATIVE) Urine RBC (0-2/HPF) Urine WBC (0-5/HPF) Ur Epithelial Cells (NONE-FEW) Urine Bacteria (NEGATIVE) Urine HCG, Qual NEGATIVE (NEGATIVE) Departure - Departure Time of Disposition: 10:13 Disposition: Home, Self-Care 01 Clinical Impression: Abdominal pain, Dyspareunia - Discharge Information Prescriptions: Acetaminophen/oxyCODONE [Percocet 325-5 MG] 1 each PO Q4HR PRN #12 tab PRN Reason: Pain (Severe 7-10) Ondansetron [Zofran ODT] 4 mg PO Q6H PRN #8 tab.dis PRN Reason: Nausea Instructions: Dyspareunia, Female, Abdominal Pain, Adult, [id number] Referrals: June Aguilar NP [Primary Care Provider] - Forms: ED Department Discharge Additional Instructions: [facility] [address] [place] [id number] [facility] [address] [place] [id number] [facility] [address] [place] [id number] [facility] [address] [place] [id number] The following information is given to patients seen in the emergency department who are being discharged to home. This information is to outline your options for follow-up care. We provide all patients seen in our emergency department with a follow-up referral. The need for follow-up, as well as the timing and circumstances, are variable depending upon the specifics of your emergency department visit. If you don't have a primary care physician on staff, we will provide you with a referral. We always advise you to contact your personal physician following an emergency department visit to inform them of the circumstance of the visit and for follow-up with them and/or the need for any referrals to a consulting spe cialist. The emergency department will also refer you to a specialist when appropriate. This referral assures that you have the opportunity for follow-up care with a specialist. All of these measure are taken in an effort to provide you with optimal care, which includes your follow-up. Under all circumstances we always encourage you to contact your private physician who remains a resource for coordinating your care. When calling for follow-up care, please make the office aware that this follow-up is from your recent emergency room visit. If for any reason you are refused follow-up, please contact the [facility] Emergency Department at and asked to speak to the emergency department charge nurse. Sepsis Event Note (ED) - Focused Exam Vital Signs: Vital Signs Temp Pulse Resp BP Pulse Ox 12/30/20 07:47 36.6 C 99 16 124/88 99 - My Orders Last 24 Hours: My Active Orders 12/30/20 08:52 Ondansetron [Zofran] 4 mg IVPUSH ONETIME ONE 12/30/20 08:53 Ketorolac [Toradol] 15 mg IVPUSH ONETIME ONE 12/30/20 10:17 CHLAMYDIA AND GONORRHEA BY TMA Stat - Assessment/Plan Last 24 Hours: My Active Orders 12/30/20 08:52 Ondansetron [Zofran] 4 mg IVPUSH ONETIME ONE 12/30/20 08:53 Ketorolac [Toradol] 15 mg IVPUSH ONETIME ONE 12/30/20 10:17 CHLAMYDIA AND GONORRHEA BY TMA Stat
[2020-12-30 10:26] VITALS: BP 109/80; PULSE 80
[2021-01-02 13:07] LABS: C.TRACHOMATIS BY TMA Negative (Negative); N.GONORRHOEAE BY TMA Negative (Negative)
== END 2020-12-30 10:37 | disposition home or self-care (01) ==
LOC: MW.ED 06:47
DX: N94.10 Unspecified dyspareunia (principal)
CPT/HCPCS: 80053; 81001; 81025; 83690; 85025; 87491; 87591; 96374; 96375; 99284; J1885; J2405

== ENCOUNTER 2022-01-18 23:53 | Emergency (ER) | payer MEDICAID ==
[2022-01-19] MEDS ORDERED: Diphtheria,Pertussis(Acell),Tetanus Vaccine 0.5 ML Syringe IM ONE (00:48)
[2022-01-19] MEDS ORDERED: Sulfamethoxazole/Trimethoprim 800-160 MG Tab PO ONE (00:48)
[2022-01-19 01:12] VITALS: BP 124/69; PULSE 106
== END 2022-01-19 01:13 | disposition home or self-care (01) ==
LOC: MW.ED 23:53
DX: L03.90 Cellulitis, unspecified (principal); Z23 Encounter for immunization
CPT/HCPCS: 90471; 90715; 99283; A9270

== ENCOUNTER 2024-03-06 19:58 | Emergency (ER) | payer MEDICAID ==
[2024-03-06] MEDS: Sodium Chloride 0.9% 1,000 ML IV ONE (20:12)
[2024-03-06 20:13] LABS: BASOPHILS ABSOLUTE AUTO 0.03 K/uL (0.00-0.20); BASOPHILS PERCENT AUTO 0.3 % (0.0-1.0); EOSINOPHILS ABSOLUTE AUTO 0.09 K/uL (0.00-0.45); HEMATOCRIT 41.2 % (37.0-47.0); HEMOGLOBIN 14.5 g/dL (12.0-16.0); IMMATURE GRAN ABSOLUTE AUTO 0.02 K/uL (0.00-0.05); IMMATURE GRAN PERCENT AUTO 0.2 % (0.0-0.4); LYMPHOCYTES ABSOLUTE AUTO 2.31 K/uL (1.00-4.80); LYMPHOCYTES PERCENT AUTO 25.5 % (24.0-44.0); MEAN CORPUSCULAR HEMOGLOBIN 31.9 pg (28.0-32.0); MEAN CORPUSCULAR HGB CONC 35.2 g/dL (32.0-36.0); MEAN CORPUSCULAR VOLUME 90.5 fL (83.0-99.0); MEAN PLATELET VOLUME 9.2 fL (9.4-12.3); MONOCYTES PERCENT AUTO 5.5 % (0.0-8.0); NEUTROPHILS PERCENT AUTO 67.5 % (41.0-71.0); PLATELET COUNT,PLT 247 K/uL (150-400); RED BLOOD CELL COUNT 4.55 M/uL (4.10-5.30); WHITE BLOOD CELL COUNT,WBC 9.05 K/uL (3.9-11.3)
[2024-03-06 20:38] LABS: A/G RATIO 1.1 (0.9-1.6); ALANINE AMINOTRANSFERASE,ALT 20 IU/L (14-63); ALBUMIN 4.1 g/dL (3.4-5.0); ALKALINE PHOSPHATASE 66 U/L (46-116); ASPARTATE AMNIOTRANSFERASE,AST 20 IU/L (15-37); BILIRUBIN TOTAL 0.8 mg/dL (0.2-1.0); BLOOD UREA NITROGEN,BUN 12 mg/dL (7.0-18.0); CALCIUM 9.5 mg/dL (8.5-10.1); CARBON DIOXIDE,CO2 23.5 mmol/L (21.0-32.0); CREATININE 0.8 mg/dL (0.6-1.0); GLUCOSE RANDOM 106 mg/dL (74-106); POTASSIUM,K 3.5 mmol/L (3.5-5.1); PROTEIN TOTAL,TP 7.7 g/dL (6.4-8.2); SODIUM,NA 141 mmol/L (136-145)
[2024-03-06 20:40] LABS: ESTIMATED GFR 100 mL/min (>60)
[2024-03-06 21:19] LABS: BILIRUBIN,URINE NEGATIVE (NEGATIVE); COLOR,URINE YELLOW; GLUCOSE,URINE NEGATIVE (NEGATIVE); KETONES,URINE 15 mg/dL (NEGATIVE); LEUKOCYTE ESTERASE,URINE NEGATIVE (NEGATIVE); NITRITE,URINE NEGATIVE (NEGATIVE); OCCULT BLOOD,URINE LARGE (NEGATIVE); PROTEIN,URINE NEGATIVE (NEGATIVE); UROBILINOGEN,URINE 0.2 EU/dL (<2.0)
[2024-03-06 21:30] LABS: APPEARANCE,URINE HAZY; BACTERIA,URINE 1+ (NEGATIVE); EPITHELIAL CELLS,URINE FEW (NONE-FEW)
[2024-03-06 21:39] LABS: CORONAVIRUS COVID-19 NAA NEGATIVE (NEGATIVE); INFLUENZA A NAA NEGATIVE (NEGATIVE); INFLUENZA B NAA NEGATIVE (NEGATIVE); RESPIRATORY SYNCYTIAL VIR NAA NEGATIVE (NEGATIVE)
[2024-03-06] MEDS: Cephalexin 500 MG Cap PO ONE (21:48)
[2024-03-06 21:52] VITALS: BP 125/87; PULSE 97
[2024-03-07 14:05] LABS: CHLORIDE,CL 107 mmol/L (98-107)
== END 2024-03-06 21:59 | disposition home or self-care (01) ==
LOC: MW.ED 19:58
DX: R55 Syncope and collapse (principal); R82.71 Bacteriuria; F17.210 Nicotine dependence, cigarettes, uncomplicated; Z75.8 Other problems related to medical facilities and other health care
CPT/HCPCS: 0241U; 36415; 70450; 71045; 80053; 81001; 81025; 83735; 84484; 85025; 93005; 96360; 99285; A9270; J7030; 93010; 99283

== ENCOUNTER 2024-03-07 02:19 | Emergency (ER) | payer MEDICAID ==
[2024-03-07 03:29] VITALS: BP 140/87; PULSE 89
== END 2024-03-07 03:25 | disposition home or self-care (01) ==
LOC: MW.ED 02:19
DX: N64.52 Nipple discharge (principal); F17.210 Nicotine dependence, cigarettes, uncomplicated; Z79.899 Other long term (current) drug therapy
CPT/HCPCS: 99281; 99283